=== PATIENT | male | born 1990 | race Caucasian/White ===

== ENCOUNTER 2016-11-15 15:54 | Emergency (ER) | payer BC ==
[~2016-11-15] VITALS: Ht 182.9 cm; Wt 81.6 kg
--- NOTE | 2016-11-15 17:10 | Emergency Room Report ---
History of Present Illness General Chief Complaint: Lower Extremity Injury Source: Patient Present Illness HPI 26-year-old male presents to the emergency department complaining of left lateral ankle/foot pain status post twisting his ankle early this afternoon. Patient reports 7/10 in severity localized pain and swelling denies erythema, bruising or recent injury to the extremity. Pain is exacerbated with walking. he denies hitting his head or losing consciousness. Denies numbness tingling or loss of sensation or gross motor movements of the extremities, incontinence of bowel or bladder. Denies CP, Palpitations, LOC, AMS, dizziness, Changes in Vision, Sensation, paresthesias, or a sudden severe headache. Allergies: Coded Allergies: No Known Allergies (Unverified , 11/15/16) Patient History Past Medical History: see triage record Past Surgical History: none Pertinent Family History: none Reviewed Nursing Documentation: PMH: Agreed, PSxH: Agreed Nursing Documentation-PMH Past Medical History: No Stated History Review of Systems All Other Systems: negative except mentioned in HPI Physical Exam Vital Signs Date Time Temp Pulse Resp B/P Pulse Ox O2 Delivery O2 Flow Rate FiO2 11/15/16 16:00 98.2 88 20 135/78 100 Room Air Sp02 EP Interpretation: reviewed, normal General Appearance: no apparent distress, alert, GCS 15, non-toxic Head: normocephalic, atraumatic Eyes: bilateral eye PERRL, bilateral eye normal inspection ENT: hearing grossly normal, normal pharynx, no angioedema, normal voice Neck: full range of motion, supple/symm/no masses Respiratory: lungs clear, normal breath sounds, speaking full sentences Cardiovascular #1: regular rate, rhythm, no edema Rectal: deferred Genitourinary: normal inspection Musculoskeletal: back normal, normal range of motion, tender - TTP, swelling to lateral left foot and ankle, no obvious deformity noted. no bruising. Neurologic: alert, oriented x3, responsive, motor strength/tone normal, sensory intact, speech normal Psychiatric: judgement/insight normal, memory normal, mood/affect normal Skin: normal color, no rash, warm/dry, well hydrated Medical Decision Making PA Attestation Dr. Escobar is my supervising Physician whom patient management has been discussed with. Diagnostic Impression: Primary Impression: Sprain of left ankle Qualified Codes: S93.402A - Sprain of unspecified ligament of left ankle, initial encounter ER Course 26-year-old male presents to the emergency department complaining of left lateral ankle/foot pain status post twisting his ankle early this afternoon. Patient reports 7/10 in severity localized pain and swelling denies erythema, bruising or recent injury to the extremity. Pain is exacerbated with walking. he denies hitting his head or losing consciousness. Denies numbness tingling or loss of sensation or gross motor movements of the extremities, incontinence of bowel or bladder. Denies CP, Palpitations, LOC, AMS, dizziness, Changes in Vision, Sensation, paresthesias, or a sudden severe headache. Ddx considered but are not limited to Fracture, dislocation, contusion, Sprain/ Strain/Spasm, Epidural abscess, Neoplastic mets. Vital signs: are WNL, pt. is afebrile H&PE are most consistent with musculoskeletal injury will perform imaging to r/ o fractures/dislocations. ORDERS: - X-ray Right Ankle 3 views - negative for fx, Dislocation, or significant soft tissue injury, per preliminary read in ED by Dr. Escobar - interpretation is scribed by PA. - X-ray Right Ankle 3 views - negative for fx, Dislocation, or significant soft tissue injury, per preliminary read in ED by Dr. Escobar - interpretation is scribed by PA. ED INTERVENTIONS: - pt declines pain medications - Roberto wrap applied to lateral left ankle and foot by evidence technician. Pt. remains neurovascularly intact. DISCHARGE: At this time pt. is stable for d/c to home. Will provide printed patient care instructions, and any necessary prescriptions. Care plan and follow up instructions have been discussed with the patient prior to discharge. Last Vital Signs Date Time Temp Pulse Resp B/P Pulse Ox O2 Delivery O2 Flow Rate FiO2 11/15/16 16:00 98.2 88 20 135/78 100 Room Air Disposition: HOME, SELF-CARE Condition: Stable Scripts Ibuprofen* (MOTRIN*) 600 Mg Tablet 600 MG ORAL THREE TIMES A DAY, #30 TAB 0 Refills Prov: Catherine Beck 11/15/16 Patient Instructions: Ankle Sprain Additional Instructions: Take medications as directed. Follow up with a Primary Care Provider in 3-5 days, even if your symptoms have resolved. --Please review list of primary care clinics, if you do not already have a primary care provider Return sooner to ED if new symptoms occur, or current symptoms become worse. - Please note that this Emergency Department Report was dictated using [email or web address] human resources assistant technology software, occasionally this can lead to erroneous entry secondary to interpretation by the dictation equipment. Catherine Beck Nov 15, 2016 17:10
[2016-11-15] MEDS ORDERED: IBUPROFEN600 MG ORAL (17:11)
[2016-11-15 17:20] VITALS: BP 137/74
--- NOTE | 2016-11-16 11:22 | Diagnostic Imaging Report ---
Indication: Left ankle pain Technique: XRAY ANKLE MIN 3VWS LEFT Comparison: None Findings: There is no acute fracture or dislocation. Bone mineralization is normal. There is mild soft tissue swelling. Impression: No acute osseous abnormality. Mild soft tissue swelling.
--- NOTE | 2016-11-16 11:25 | Diagnostic Imaging Report ---
Indication: Left foot pain Technique: XRAY FOOT MIN 3V LEFT Comparison: None Findings: Tiny ossific densities are seen at the dorsal aspect of the talar head and navicular. Mild soft tissue swelling is seen. Otherwise there is no acute fracture or dislocation. Impression: Tiny ossific density is noted at the dorsal aspect of the talar head and navicular could represent avulsion fractures. Clinical correlation recommended. Followup as indicated. Findings discussed with Dr. Smith on 11/16/16 by phone.
== END 2016-11-15 17:20 | disposition home or self-care (01) ==
LOC: EMR 17:00
DX: S93.402A Sprain of unspecified ligament of left ankle, initial encounter (principal); X58.XXXA Exposure to other specified factors, initial encounter; Y93.9 Activity, unspecified; Y92.9 Unspecified place or not applicable
CPT/HCPCS: 29540; 99284